=== PATIENT | male | born 2000 | race Two or more races ===

== ENCOUNTER 2020-11-29 20:44 | Emergency (ER) | payer BC ==
[~2020-11-29] VITALS: Ht 180.3 cm; Wt 80.9 kg
[2020-11-29 22:05] VITALS: BP 122/56
--- NOTE | 2020-11-29 22:24 | PHYS DOC ---
General Adult EDM: Chief Complaint: LACERATION/AVULSION HPI: HPI: Patient is a 20 year old male who presents with was running up the stairs in his apartment and tripped and fell forward hitting his head causing a 2 inch laceration that is vertical through the left eyebrow. Bleeding is controlled. He states he is up-to-date on all of his vaccinations. He has had his Covid vaccination. He denies LOC, headache, dizziness, nausea, vomiting, neck pain, back pain, abdominal pain, cough, fever, vision change, numbness or tingling. Review of Systems: Review of Systems: Constitutional: Denies fever or chills. [] Eyes: Denies change in visual acuity. [] HENT: Denies nasal congestion or sore throat. [] Respiratory: Denies cough or shortness of breath. [] Cardiovascular: Denies chest pain or edema. [] GI: Denies abdominal pain, nausea, vomiting, bloody stools or diarrhea. [] : Denies dysuria. [] Musculoskeletal: Denies back pain or joint pain. [] Integument: Denies rash. +Left forehead laceration [] Neurologic: Denies headache, focal weakness or sensory changes. + Left facial pain at the eyelid [] Endocrine: Denies polyuria or polydipsia. [] Lymphatic: Denies swollen glands. [] Psychiatric: Denies depression or anxiety. [] Heart Score: C/O Chest Pain: No Risk Factors: Risk Factors: DM, Current or recent (<one month) smoker, HTN, HLP, family history of CAD, obesity. Risk Scores: Score 0 - 3: 2.5% MACE over next 6 weeks - Discharge Home Score 4 - 6: 20.3% MACE over next 6 weeks - Admit for Clinical Observation Score 7 - 10: 72.7% MACE over next 6 weeks - Early Invasive Strategies Physical Exam: PE: Constitutional: Well developed, well nourished, no acute distress, non-toxic appearance. [] HENT: Normocephalic, atraumatic, bilateral external ears normal, oropharynx moist, no oral exudates, nose normal. [] Eyes: PERRLA, EOMI, conjunctiva normal, no discharge. [] Neck: Normal range of motion, no tenderness, supple, no stridor. [] Cardiovascular:Heart rate regular rhythm, no murmur [] Lungs & Thorax: Bilateral breath sounds clear to auscultation [] Abdomen: Bowel sounds normal, soft, no tenderness, no masses, no pulsatile masses. [] Skin: Warm, dry, no erythema, no rash. 2 inch laceration vertical through eyebrow. [] Back: No tenderness, no CVA tenderness. [] Extremities: No tenderness, no cyanosis, no clubbing, ROM intact, no edema. [] Neurologic: Alert and oriented X 3, normal motor function, normal sensory function, no focal deficits noted. [] Psychologic: Affect normal, judgement normal, mood normal. [] EKG: EKG: [] Radiology/Procedures: Radiology/Procedures: [] Course & Med Decision Making: Course & Med Decision Making Pertinent Labs and Imaging studies reviewed. (See chart for details) See HPI. Alert and oriented x4. Ambulatory steady gait. Skin is pink warm and dry. Afebrile. PERRLA. Laceration repair Location: Left lateral through eyebrow. 2 inches. Local anesthesia: None Interrupted sutures/Internal sutures: Dermabond Nerve/ligament/muscle damage: None Cleaning and irrigation: Chlorhexidine. The appropriate timeout was taken. The area was prepped and draped in the usual sterile fashion. The wound was copiously irrigated with normal saline and chlorhexidine. Patient tolerated well without complication. Dressing was applied to the area follow-up education is given to observe for signs and symptoms of infection, bleeding and to follow-up promptly if these occur. Patient can return in 48 hours for a wound recheck. Sutures to be removed in 7 to 10 days. [] Aryan Disclaimer: Aryan Disclaimer: This electronic medical record was generated, in whole or in part, using a voice recognition dictation system. Departure Departure Impression: Primary Impression: Laceration Disposition: 01 HOME / SELF CARE / HOMELESS Condition: STABLE Referrals: NO PCP (PCP) Patient Instructions: Laceration Care, Adult, Stitches, [place] or Skin Adh esive Strips, [id number] Additional Instructions: Follow-up with primary care provider if needed. Do not put any lotions or ointments over the laceration part as it will breakdown the glue. Do not scrub or pick at the glue. RYANN QUINTERO [employer]ISUAL [employer] DEVELOPER Nov 29, 2020 22:24
== END 2020-11-29 22:42 | disposition home or self-care (01) ==
LOC: ER 20:44
DX: S01.112A Laceration without foreign body of left eyelid and periocular area, initial encounter (principal); W01.198A Fall on same level from slipping, tripping and stumbling with subsequent striking against other object, initial encounter; Y93.02 Activity, running; Y92.89 Other specified places as the place of occurrence of the external cause; Y99.8 Other external cause status
CPT/HCPCS: 12013; 99282